=== PATIENT | female | born 1975 | race Two or more races ===

== ENCOUNTER 2018-05-21 16:44 | Emergency (ER) | payer MEDICAID ==
[~2018-05-21] VITALS: Ht 162.6 cm; Wt 84.4 kg
[2018-05-21 17:12] VITALS: BP 139/87
[2018-05-21] MEDS ORDERED: Acetaminophen 500mg (ES) tab ORAL ONE (17:30)
[2018-05-21 18:01] LABS: EOSINOPHILS % (AUTO) 1.8 % (0.0-3.0); HEMATOCRIT 41.9 % (37.0-47.0); HEMOGLOBIN 13.6 G/DL (12.0-16.0); LYMPHOCYTES % (AUTO) 30.7 % (20.0-45.0); MEAN CORPUSCULAR VOLUME 86 FL (80-99); NEUTROPHILS % (AUTO) 54.6 % (45.0-75.0); PLATELET COUNT 300 K/UL (150-450); RED BLOOD COUNT 4.89 M/UL (4.20-5.40); RED CELL DISTRIBUTION WIDTH 13.3 % (11.6-14.8); WHITE BLOOD COUNT 4.4 K/UL (4.8-10.8)
[2018-05-21 18:13] LABS: ANION GAP 8 mmol/L (5-15); BLOOD UREA NITROGEN 16 mg/dL (7-18); CALCIUM 9.1 MG/DL (8.5-10.1); CARBON DIOXIDE 25 MMOL/L (21-32); CHLORIDE 102 MMOL/L (98-107); CREATININE 0.7 MG/DL (0.55-1.30); POTASSIUM 4.4 MMOL/L (3.5-5.1); SODIUM 134 MMOL/L (136-145)
[2018-05-21 18:31] LABS: ALANINE AMINOTRANSFERASE 42 U/L (12-78); ALBUMIN/GLOBULIN RATIO 0.8 (1.0-2.7); ALKALINE PHOSPHATASE 103 U/L (46-116); ASPARTATE AMINO TRANSFERASE 26 U/L (15-37); BILIRUBIN,TOTAL 0.6 MG/DL (0.2-1.0); CKMB 0.6 NG/ML (0.0-3.6); CREATINE KINASE 76 U/L (26-308)
--- NOTE | 2018-05-21 18:47 | Emergency Room Report ---
History of Present Illness General Chief Complaint: Syncope Source: Patient Present Illness HPI 42-year-old female presents ED for evaluation. Patient states she had a syncopal episode today. States she felt dizzy and passed out. Hit her head. Complaining of headache and dizziness. Throbbing, 8 out of 10, nonradiating. Denies chest pain or shortness of breath. Denies any neck stiffness. Denies any fevers or chills. Denies any blurry vision. History of hypertension and diabetes. States she is compliant with her medications. No other aggravating relieving factors. Denies any other associated symptoms Allergies: Coded Allergies: HYDROCODONE (Verified Allergy, Unknown, 05/21/18) Patient History Past Medical History: DM, HTN Past Surgical History: none Pertinent Family History: none Social History: Denies: smoking, alcohol use, drug use Last Menstrual Period: 05/16/18 Now: No : 3 Para: 3 Immunizations: UTD Reviewed Nursing Documentation: PMH: Agreed; PSxH: Agreed Nursing Documentation-PMH Past Medical History: No History, Except For Hx Hypertension: Yes Hx Diabetes: Yes Review of Systems All Other Systems: negative except mentioned in HPI Physical Exam Vital Signs Date Time Temp Pulse Resp B/P (MAP) Pulse Ox O2 Delivery O2 Flow Rate FiO2 05/21/18 16:49 98.4 93 20 164/77 96 Room Air 98.4 Sp02 EP Interpretation: reviewed, normal General Appearance: no apparent distress, alert, GCS 15, non-toxic Head: normocephalic, other - TTP posterior scalp Eyes: bilateral eye normal inspection, bilateral eye PERRL ENT: hearing grossly normal, normal pharynx, no angioedema, normal voice Neck: full range of motion, supple, no meningismus, supple/symm/no masses, tender midline Respiratory: chest non-tender, lungs clear, normal breath sounds, speaking full sentences Cardiovascular #1: regular rate, rhythm, no edema Cardiovascular #2: 2+ carotid (R), 2+ carotid (L), 2+ radial (R), 2+ radial (L) , 2+ dorsalis pedis (R), 2+ dorsalis pedis (L) Gastrointestinal: normal bowel sounds, non tender, soft, non-distended, no guarding, no rebound Rectal: deferred Genitourinary: normal inspection, no CVA tenderness Musculoskeletal: back normal, gait/station normal, normal range of motion, non- tender Neurologic: alert, oriented x3, responsive, motor strength/tone normal, sensory intact, speech normal Psychiatric: judgement/insight normal, memory normal, mood/affect normal, no suicidal/homicidal ideation Reflexes: 3+ bicep (R), 3+ bicep (L), 3+ tricep (R), 3+ tricep (L), 3+ knee (R) , 3+ knee (L) Skin: normal color, no rash, warm/dry, well hydrated Lymphatic: no adenopathy Medical Decision Making Diagnostic Impression: Primary Impression: Syncope Qualified Codes: R55 - Syncope and collapse Additional Impression: Hyperglycemia ER Course Hospital Course 42-year-old female presents ED s/p syncopal episode. c/o headache s/p fall Differential diagnoses include: arrythmia, dehydration, intracranial bleed, seizure Clinical course Patient placed on stretcher. on air sampling and monitoring. After initial history and physical I ordered labs, EKG, chest Xray, IVFs, CT Brain labs reviewed- no leukocytosis, Hb/Hct stable, glucose > 300, no DKA, UA negative, troponins negative CT Brain - unremarkable CT C spine - no acute process Chest x-ray- no acute process EKG - NSR, no acute ischemic changes interpreted by me Discussed findings with patient. Patient safely discharged. Patient states that she's been having these symptoms ever since she was started on insulin a few days ago. Glucose in the 300s so unlikely dose is too strong. I recommend patient follow up with her PMD for medication adjustment Patient given copies of labs, CT I. I feel this is a highly complex case requiring extensive working including EKG/Rhythm strip, Xray/CT/US, Blood/urine lab work, repeat exams while in ED, and administration of strong opiates/narcotics for pain control, admission to hospital or close patient follow up. Diagnosis - syncope, hypergylcemia Stable and discharged to home. Followup with PMD. Return to ED if symptoms recur or worsen Labs Test 05/21/18 17:20 05/21/18 18:35 White Blood Count 4.4 K/UL (4.8-10.8) Red Blood Count 4.89 M/UL (4.20-5.40) Hemoglobin 13.6 G/DL (12.0-16.0) Hematocrit 41.9 % (37.0-47.0) Mean Corpuscular Volume 86 FL (80-99) Mean Corpuscular Hemoglobin 27.8 PG (27.0-31.0) Mean Corpuscular Hemoglobin Concent 32.4 G/DL (32.0-36.0) Red Cell Distribution Width 13.3 % (11.6-14.8) Platelet Count 300 K/UL (150-450) Mean Platelet Volume 7.3 FL (6.5-10.1) Neutrophils (%) (Auto) 54.6 % (45.0-75.0) Lymphocytes (%) (Auto) 30.7 % (20.0-45.0) Monocytes (%) (Auto) 12.0 % (1.0-10.0) Eosinophils (%) (Auto) 1.8 % (0.0-3.0) Basophils (%) (Auto) 1.0 % (0.0-2.0) Sodium Level 134 MMOL/L (136-145) Potassium Level 4.4 MMOL/L (3.5-5.1) Chloride Level 102 MMOL/L (98-107) Carbon Dioxide Level 25 MMOL/L (21-32) Anion Gap 8 mmol/L (5-15) Blood Urea Nitrogen 16 mg/dL (7-18) Creatinine 0.7 MG/DL (0.55-1.30) Estimat Glomerular Filtration Rate > 60 mL/min (>60) Glucose Level 303 MG/DL (74-106) Calcium Level 9.1 MG/DL (8.5-10.1) Total Bilirubin 0.6 MG/DL (0.2-1.0) Aspartate Amino Transf (AST/SGOT) 26 U/L (15-37) Alanine Aminotransferase (ALT/SGPT) 42 U/L (12-78) Alkaline Phosphatase 103 U/L (46-116) Total Creatine Kinase 76 U/L (26-308) Creatine Kinase MB 0.6 NG/ML (0.0-3.6) Creatine Kinase MB Relative Index 0.7 Troponin I 0.000 ng/mL (0.000-0.056) Total Protein 6.9 G/DL (6.4-8.2) Albumin 3.0 G/DL (3.4-5.0) Globulin 3.9 g/dL Albumin/Globulin Ratio 0.8 (1.0-2.7) Urine Color Pale yellow Urine Appearance Clear Urine pH 6 (4.5-8.0) Urine Specific [place] 1.010 (1.005-1.035) Urine Protein Negative (NEGATIVE) Urine Glucose (UA) 4+ (NEGATIVE) Urine Ketones Negative (NEGATIVE) Urine Blood Negative (NEGATIVE) Urine Nitrite Negative (NEGATIVE) Urine Bilirubin Negative (NEGATIVE) Urine Urobilinogen Normal MG/DL (0.0-1.0) Urine Leukocyte Esterase Negative (NEGATIVE) Urine HCG, Qualitative Negative (NEGATIVE) EKG Diagnostic Results Rate: normal Rhythm: NSR ST Segments: no acute changes ASA given to the pt in ED: No Rhythm Strip Diag. Results EP Interpretation: yes Rhythm: NSR, no PVC's, no ectopy Chest X-Ray Diagnostic Results Chest X-Ray Diagnostic Results : Chest X-Ray Ordered: Yes # of Views/Limited/Complete: 1 View Indication: Other - syncope EP Interpretation: Yes Interpretation: no consolidation, no effusion, no pneumothorax, no acute cardiopulmonary disease Impression: No acute disease Electronically Signed by: Electronically signed by Hany Perez MD CT/MRI/US Diagnostic Results CT/MRI/US Diagnostic Results #1: Imaging Test Ordered: CT Head Impression no acute process CT/MRI/US Diagnostic Results #2: Imaging Test Ordered: CT C spine Impression no acute process Last Vital Signs Date Time Temp Pulse Resp B/P (MAP) Pulse Ox O2 Delivery O2 Flow Rate FiO2 05/21/18 17:55 98.4 05/21/18 17:12 88 19 139/87 99 Room Air Status: improved Disposition: HOME, SELF-CARE Condition: Stable Referrals: NOT CHOSEN [facility]/,REFERRING (PCP) Hany Perez MD May 21, 2018 18:47
[2018-05-21 18:48] LABS: APPEARANCE,URINE CLEAR; BILIRUBIN, URINE NEGATIVE (NEGATIVE); COLOR,URINE PALE YELLOW; GLUCOSE, URINE (UA) 4+ (NEGATIVE); KETONES,URINE NEGATIVE (NEGATIVE); LEUKOCYTE ESTERASE ,URINE NEGATIVE (NEGATIVE); NITRITE,URINE NEGATIVE (NEGATIVE); PH,URINE 6 (4.5-8.0); PROTEIN,URINE NEGATIVE (NEGATIVE); UROBILINOGEN,URINE NORMAL MG/DL (0.0-1.0)
[2018-05-21 19:09] VITALS: BP 130/80
[2018-05-21 19:23] VITALS: BP 130/80
--- NOTE | 2018-05-22 09:16 | Diagnostic Imaging Report ---
Indication: Neck pain, trauma, syncope Technique: Spiral acquisitions obtained through the cervical spine. No IV contrast utilized. Multiplanar reconstructions were generated. Total dose length product 1748.44 mGycm. CTDIvol(s) 70.38,19.18 mGy. Dose reduction achieved using automated exposure control. Comparison: none Findings: There is slight straightening of the normal cervical lordosis, otherwise normal bony alignment. No acute fractures. No dislocations. Vertebral body heights are preserved. The disc spaces are preserved. The facet joint spaces are preserved. At C3-4, there is mild neural foraminal stenosis on the right. No significant disc bulge or protrusion, or spinal stenosis. At C5-6, there is minimal degenerative neural foraminal stenosis on the left. No significant disc bulge or protrusion or spinal stenosis. At the remaining disc levels, no significant disc bulge or protrusion, spinal stenosis, or neural foraminal narrowing. The included upper aerodigestive tract and cervical soft tissues appear unremarkable. Impression: Essentially unremarkable exam Minimal degenerative change as described This agrees with the preliminary interpretation provided overnight by [facility]. The CT scanner at [facility] is accredited by the [employer] and the scans are performed using protocols designed to limit radiation exposure to as low as reasonably achievable to attain images of sufficient resolution adequate for diagnostic evaluation.
--- NOTE | 2018-05-22 09:17 | Diagnostic Imaging Report ---
Indication: Reason For Exam: SYNCOPE Technique: Continuous helical CT scanning of the head was performed without intravenous contrast material. Axial and coronal 5 mm sections were generated. Radiation dose was minimized using automated exposure control Dose: Total Dose Length Product - DLP 1748.[address] Dose Index - CTDIvol(s) 70.38,19.18 mGy. Comparison: none Findings: The ventricular system is normal in size and configuration. There is no shift of midline structures. No abnormal extra-axial fluid collections are noted. There is no evidence of intracerebral bleeding. No other abnormal high or low density areas are noted within the brain. Normal rothman-white differentiation. No evidence of significant soft tissue contusion. Visualized orbits and sinuses are unremarkable. The mastoids are clear Impression: Normal CT scan of the head without contrast material. This agrees with the preliminary interpretation provided overnight by [facility]. The CT scanner at [facility] is accredited by the [employer] and the scans are performed using protocols designed to limit radiation exposure to as low as reasonably achievable to attain images of sufficient resolution adequate for diagnostic evaluation.
--- NOTE | 2018-05-22 09:45 | Diagnostic Imaging Report ---
Indication: Shortness of breath Technique: One view of the chest Comparison: none Findings: Lungs and pleural spaces are clear. Heart size is normal Impression: No acute process
== END 2018-05-21 19:19 | disposition home or self-care (01) ==
LOC: EMR 17:14
DX: R55 Syncope and collapse (principal); E11.65 Type 2 diabetes mellitus with hyperglycemia; I10 Essential (primary) hypertension; Z79.4 Long term (current) use of insulin
CPT/HCPCS: 36415; 70450; 71045; 72125; 80053; 81003; 81025; 82550; 82553; 84484; 85025; 93005; 96360; 99284

== ENCOUNTER 2020-06-11 16:19 | Emergency (ER) | payer MEDICAID ==
[~2020-06-11] VITALS: Ht 162.6 cm; Wt 72.6 kg
[2020-06-11 16:28] VITALS: BP 135/82
--- NOTE | 2020-06-11 16:34 | NUR ---
ED Nurse Note: [id number]
--- NOTE | 2020-06-11 16:38 | NUR ---
ED Nurse Note: Patient from home and walked in due to right earcahe with no disharge or bleeding. Denies dizziness. AAO x4 and ambulatory.
--- NOTE | 2020-06-11 17:14 | Emergency Room Report ---
History of Present Illness General Chief Complaint: Earache Source: Patient, Medical Record Present Illness HPI 44-year-old female with history of hypertension and diabetes presents to the emergency department complaining of 10 out of 10 severity progressive onset of right ear pain since yesterday. Patient reports pain that radiates towards the jaw and in front of the ear. She denies discharge, suspicion of foreign body or Q-tip use. Patient denies ear trauma. Patient denies rash. Patient denies fevers or chills. She reports muffled hearing. She denies neck pain/stiffness, headache, dizziness or tinnitus. Allergies: Coded Allergies: HYDROCODONE (Verified Allergy, Unknown, 05/21/18) COVID-19 Screening Contact w/high risk pt: No Experienced COVID-19 symptoms?: No COVID-19 Testing performed MANAGER DAIRY: No Patient History Past Medical History: see triage record Past Surgical History: none Pertinent Family History: none Now: No Reviewed Nursing Documentation: PMH: Agreed; PSxH: Agreed Nursing Documentation-PMH Past Medical History: No History, Except For Hx Hypertension: Yes Hx Diabetes: Yes Review of Systems All Other Systems: negative except mentioned in HPI Physical Exam Vital Signs Date Time Temp Pulse Resp B/P (MAP) Pulse Ox O2 Delivery O2 Flow Rate FiO2 06/11/20 16:28 98.2 78 18 135/82 96 Room Air Sp02 EP Interpretation: reviewed, normal General Appearance: no apparent distress, alert, GCS 15, non-toxic Head: normocephalic, atraumatic Eyes: bilateral eye normal inspection, bilateral eye PERRL ENT: hearing grossly normal, normal voice, uvula midline, other - Right TM is Erythematous and bulging with opaque effusion noted. The canal is WNL. Some TTP to the preauricular area. The left TM and Canal are WNL Neck: full range of motion, no meningismus, no bony tend Respiratory: chest non-tender, lungs clear, normal breath sounds, speaking full sentences Cardiovascular #1: regular rate, rhythm Musculoskeletal: normal range of motion, gait/station normal, non-tender Neurologic: alert, motor strength/tone normal, oriented x3, sensory intact, responsive, speech normal Psychiatric: judgement/insight normal Skin: no rash, normal color Lymphatic: no adenopathy Medical Decision Making PA Attestation Dr. Arora is my supervising Physician whom patient management has been discussed with. Diagnostic Impression: Primary Impression: Otitis media Qualified Codes: H66.002 - Acute suppurative otitis media without spontaneous rupture of ear drum, left ear ER Course 44-year-old female with history of hypertension and diabetes presents to the emergency department complaining of 10 out of 10 severity progressive onset of right ear pain since yesterday. Patient reports pain that radiates towards the jaw and in front of the ear. She denies discharge, suspicion of foreign body or Q-tip use. Patient denies ear trauma. Patient denies rash. Patient denies fevers or chills. She reports muffled hearing. She denies neck pain/stiffness, headache, dizziness or tinnitus. Ddx considered but are not limited to OM, OE, mastoiditis, TM perforation, FB Vital signs: are WNL, pt. is afebrile H&PE are most consistent with otitis media ORDERS: none required at this time, the diagnosis is clinical -OTOSCOPY: Right TM is Erythematous and bulging with opaque effusion noted. The canal is WNL. Some TTP to the preauricular area. ED INTERVENTIONS: None required at this time. DISCHARGE: At this time pt. is stable for d/c to home. With PO ABX. Will provide printed patient care instructions, and any necessary prescriptions. Care plan and follow up instructions have been discussed with the patient prior to discharge. Last Vital Signs Date Time Temp Pulse Resp B/P (MAP) Pulse Ox O2 Delivery O2 Flow Rate FiO2 06/11/20 16:28 98.2 78 18 135/82 (99) 96 Room Air Disposition: HOME, SELF-CARE Condition: Stable Scripts Acetaminophen* (TYLENOL EXTRA STRENGTH*) 500 Mg Tablet 500 MG ORAL Q6H PRN for Mild Pain/Temp > 100.5, #20 TAB 0 Refills Prov: Reema Reed 06/11/20 Amoxicillin/Potassium Clav 875-125* (AUGMENTIN 875-125 TABLET*) 1 Each Tablet 1 TAB ORAL TWICE A DAY for 10 Days, #20 TAB Prov: Reema Reed 06/11/20 Patient Instructions: Otitis Media, Adult, [id number] Additional Instructions: Take medications as directed. Follow up with a Primary Care Provider in 3-5 days, even if your symptoms have resolved. Return sooner to ED if new symptoms occur, or current symptoms become worse. - Please note that this Emergency Department Report was dictated using [employer] technology software, occasionally this can lead to erroneous entry secondary to interpretation by the dictation equipment. Reema Reed Jun 11, 2020 17:14
[2020-06-11] MEDS ORDERED: AUGMENTIN 875-1 EAC1 ORAL (17:15)
[2020-06-11] MEDS ORDERED: TYLENOL EXTRA500 MG ORAL (17:15)
[2020-06-11 17:24] VITALS: BP 129/76
--- NOTE | 2020-06-11 17:24 | NUR ---
ER DISCHARGE NOTE: Patient is cleared to be discharged per PA, pt is aox4, on room air, with stable vital signs. pt was given dc and prescription instructions, pt was able to verbalize understanding, pt id band removed. pt is able to ambulate with steady gait. pt took all belongings.
== END 2020-06-11 17:24 | disposition home or self-care (01) ==
LOC: EMR 16:45
DX: H66.001 Acute suppurative otitis media without spontaneous rupture of ear drum, right ear (principal); E11.9 Type 2 diabetes mellitus without complications; I10 Essential (primary) hypertension
CPT/HCPCS: 99282

== ENCOUNTER 2020-11-09 07:15 | Inpatient (IN) | payer MEDICAID ==
[~2020-11-09] VITALS: Ht 154.9 cm; Wt 91.2 kg
[~2020-11-09 07:15] MED LIST: AUGMENTIN 875-1 EAC1 ORAL; IBU800 MG PO; ROBAXIN-500MG ORAL; TYLENOL EXTRA500 MG ORAL
[2020-11-09] MEDS ORDERED: METFORMIN HCL500 M1 ORAL (07:30)
[2020-11-09] MEDS ORDERED: TRAMADOL HCL50 MG ORAL (07:30)
[2020-11-09] MEDS ORDERED: htn med (07:32)
[2020-11-09] MEDS ORDERED: Ketorolac 30mg Inj IV ONE (07:45)
--- NOTE | 2020-11-09 07:45 | Emergency Room Report ---
History of Present Illness General Chief Complaint: Abdominal Pain Source: Patient Present Illness HPI Patient is a 45-year-old female past medical history of diabetes and hypertension who presents to the ER complaining of abdominal pain and back pain. Patient states that she has had worsening abdominal pain and lower back pain for the past 2 days. She states that she also had a slight headache yesterday went to a local clinic and was given tramadol. She states that her headache has now resolved. She complains of mild nausea but denies any vomiting. She denies any chest pain or shortness of breath. She states that she did have dysuria earlier in the week but it has since resolved. She denies any hematuria. She denies any chest pain or shortness of breath. Denies any alcohol abuse. 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 COVID-19 Screening: PUI COVID-19 COVID-19 Testing Source: clinic Patient History Last Menstrual Period: 2-11 Now: No Reviewed Nursing Documentation: PMH: Agreed; PSxH: Agreed Nursing Documentation-PMH Past Medical History: No History, Except For Hx Hypertension: Yes Hx Diabetes: Yes Review of Systems All Other Systems: negative except mentioned in HPI Physical Exam Vital Signs Date Time Temp Pulse Resp B/P (MAP) Pulse Ox O2 Delivery O2 Flow Rate FiO2 11/09/20 07:22 98.2 84 22 153/73 (99) 96 Room Air Sp02 EP Interpretation: reviewed, normal General Appearance: alert, GCS 15, non-toxic, mild distress Head: normocephalic, atraumatic Eyes: bilateral eye normal inspection, bilateral eye PERRL ENT: hearing grossly normal, normal pharynx, no angioedema, normal voice Neck: full range of motion, supple/symm/no masses Respiratory: chest non-tender, lungs clear, normal breath sounds, speaking full sentences Cardiovascular #1: regular rate, rhythm, no edema Gastrointestinal: no guarding, no rebound, other - Diffuse abdominal pain, overweight Rectal: deferred Genitourinary: CVA tenderness (R), CVA tenderness (L) Musculoskeletal: normal range of motion Neurologic: speech therapy assistant III-XII nml as tested, oriented x3 Psychiatric: no suicidal/homicidal ideation Skin: no rash Lymphatic: no adenopathy Medical Decision Making Diagnostic Impression: Primary Impression: Pancreatitis Additional Impressions: UTI (urinary tract infection) Hyperglycemia Leukocytosis Fatty liver ER Course Given IV fluids, IV Toradol and Zofran. On reevaluation at 8:45 AM she states that she feels improved. I went over the patient's results with her including UTI with microscopic hematuria as well as elevated lipase. Patient will need admission. I have started her on antibiotics for her UTI. We will continue to monitor pending CT abdomen pelvis. Patient CT demonstrates no acute intraabdominal or pelvic pathology. Patient will be admitted for further treatment and evaluation. Laboratory Tests Test 11/09/20 07:42 11/09/20 07:51 POC Whole Blood Glucose 255 MG/DL (74-106) H White Blood Count 13.7 K/UL (4.8-10.8) H Red Blood Count 5.41 M/UL (4.20-5.40) H Hemoglobin 14.9 G/DL (12.0-16.0) Hematocrit 46.1 % (37.0-47.0) Mean Corpuscular Volume 85 FL (80-99) Mean Corpuscular Hemoglobin 27.5 PG (27.0-31.0) Mean Corpuscular Hemoglobin Concent 32.3 G/DL (32.0-36.0) Red Cell Distribution Width 15.1 % (11.6-14.8) H Platelet Count 373 K/UL (150-450) Mean Platelet Volume 8.3 FL (6.5-10.1) Neutrophils (%) (Auto) 70.3 % (45.0-75.0) Lymphocytes (%) (Auto) 21.6 % (20.0-45.0) Monocytes (%) (Auto) 6.3 % (1.0-10.0) Eosinophils (%) (Auto) 0.7 % (0.0-3.0) Basophils (%) (Auto) 1.1 % (0.0-2.0) Urine Color Pale yellow Urine Appearance Cloudy Urine pH 5 (4.5-8.0) Urine Specific [place] 1.020 (1.005-1.035) Urine Protein 3+ (NEGATIVE) H Urine Glucose (UA) 3+ (NEGATIVE) H Urine Ketones Negative (NEGATIVE) Urine Blood 5+ (NEGATIVE) H Urine Nitrite Negative (NEGATIVE) Urine Bilirubin Negative (NEGATIVE) Urine Urobilinogen Normal MG/DL (0.0-1.0) Urine Leukocyte Esterase 2+ (NEGATIVE) H Urine RBC Tntc /HPF (0 - 2) H Urine WBC 15-20 /HPF (0 - 2) H Urine Squamous Epithelial Cells Moderate /LPF (NONE/OCC) H Urine Amorphous Sediment Moderate /LPF (NONE) H Urine Bacteria Moderate /HPF (NONE) H Urine HCG, Qualitative Negative (NEGATIVE) Sodium Level 135 MMOL/L (136-145) L Potassium Level 4.1 MMOL/L (3.5-5.1) Chloride Level 102 MMOL/L (98-107) Carbon Dioxide Level 25 MMOL/L (21-32) Anion Gap 8 mmol/L (5-15) Blood Urea Nitrogen 16 mg/dL (7-18) Creatinine 0.8 MG/DL (0.55-1.30) Estimated Glomerular Filtration Rate > 60 mL/min (>60) Glucose Level 236 MG/DL (74-106) H Calcium Level 8.4 MG/DL (8.5-10.1) L Magnesium Level 1.8 MG/DL (1.8-2.4) Total Bilirubin 0.3 MG/DL (0.2-1.0) Aspartate Amino Transferase (AST) 17 U/L (15-37) Alanine Aminotransferase (ALT) 36 U/L (12-78) Alkaline Phosphatase 92 U/L (46-116) Total Protein 6.7 G/DL (6.4-8.2) Albumin 3.2 G/DL (3.4-5.0) L Globulin 3.5 g/dL Albumin/Globulin Ratio 0.9 (1.0-2.7) L Lipase 953 U/L (73-393) H Urine Opiates Screen Negative (NEGATIVE) Urine Barbiturates Screen Negative (NEGATIVE) Phencyclidine (PCP) Screen Negative (NEGATIVE) Urine Amphetamines Screen Negative (NEGATIVE) Urine Benzodiazepines Screen Negative (NEGATIVE) Urine Cocaine Screen Negative (NEGATIVE) Urine Marijuana (THC) Screen Negative (NEGATIVE) Acetone Level Negative (NEGATIVE) Microbiology Date/Time Source Procedure Growth Status 11/09/20 08:26 Nasopharynx SARS-CoV-2 Antigen (Rapid)(JENNY) - Final Complete EKG Diagnostic Results Troponin ordered: No - Ordered for abdominal pain EKG Time: 07:39 EP Interpretation: Roselyn Dukes MD Rate: normal - 77 bpm Rhythm: NSR ST Segments: no acute changes ASA given to the pt in ED: No Rhythm Strip Diag. Results Rhythm Strip Time: 10:39 EP Interpretation: yes - Roselyn Dukes MD Rate: 71 bpm Rhythm: NSR, no PVC's, no ectopy Last Vital Signs Date Time Temp Pulse Resp B/P (MAP) Pulse Ox O2 Delivery O2 Flow Rate FiO2 11/09/20 07:22 98.2 84 22 153/73 (99) 96 Room Air Disposition: ADMITTED INPATIENT - medical surgical floor Condition: Critical Physician Consult: Dr. Kenyon at 1040am Referrals: NOT CHOSEN IPA/,REFERRING (PCP) Additional Instructions: Please note that this report is being documented using [employer] technology. This can lead to erroneous entry secondary to incorrect interpretation by the dictating instrument. Roselyn Dukes M.D. Nov 09, 2020 07:44
--- NOTE | 2020-11-09 07:47 | NUR ---
ED Nurse Note: pt states she is having abd pain that radiates to back. states seen yest for headache at clinic and having pending covid test. no active n/v
[2020-11-09 07:59] VITALS: BP 153/73
[2020-11-09 08:12] LABS: APPEARANCE,URINE CLOUDY; BILIRUBIN, URINE NEGATIVE (NEGATIVE); COLOR,URINE PALE YELLOW; GLUCOSE, URINE (UA) 3+ (NEGATIVE); KETONES,URINE NEGATIVE (NEGATIVE); LEUKOCYTE ESTERASE ,URINE 2+ (NEGATIVE); NITRITE,URINE NEGATIVE (NEGATIVE); PH,URINE 5 (4.5-8.0); PROTEIN,URINE 3+ (NEGATIVE); UROBILINOGEN,URINE NORMAL MG/DL (0.0-1.0)
[2020-11-09 08:16] LABS: BASOPHILS % (AUTO) 1.1 % (0.0-2.0); EOSINOPHILS % (AUTO) 0.7 % (0.0-3.0); HEMATOCRIT 46.1 % (37.0-47.0); HEMOGLOBIN 14.9 G/DL (12.0-16.0); LYMPHOCYTES % (AUTO) 21.6 % (20.0-45.0); MEAN CORPUSCULAR VOLUME 85 FL (80-99); MONOCYTES % (AUTO) 6.3 % (1.0-10.0); NEUTROPHILS % (AUTO) 70.3 % (45.0-75.0); PLATELET COUNT 373 K/UL (150-450); RED BLOOD COUNT 5.41 M/UL (4.20-5.40); RED CELL DISTRIBUTION WIDTH 15.1 % (11.6-14.8); WHITE BLOOD COUNT 13.7 K/UL (4.8-10.8)
[2020-11-09 08:28] LABS: ANION GAP 8 mmol/L (5-15); BLOOD UREA NITROGEN 16 mg/dL (7-18); CALCIUM 8.4 MG/DL (8.5-10.1); CARBON DIOXIDE 25 MMOL/L (21-32); CHLORIDE 102 MMOL/L (98-107); CREATININE 0.8 MG/DL (0.55-1.30); POTASSIUM 4.1 MMOL/L (3.5-5.1); SODIUM 135 MMOL/L (136-145)
[2020-11-09] MEDS ORDERED: cefTRIAXone 2 GM in NS 55 ML IVPB ONE (08:30)
[2020-11-09 08:32] LABS: ALANINE AMINOTRANSFERASE 36 U/L (12-78); ALBUMIN 3.2 G/DL (3.4-5.0); ALBUMIN/GLOBULIN RATIO 0.9 (1.0-2.7); ALKALINE PHOSPHATASE 92 U/L (46-116); ASPARTATE AMINO TRANSFERASE 17 U/L (15-37); BILIRUBIN,TOTAL 0.3 MG/DL (0.2-1.0)
--- NOTE | 2020-11-09 10:28 | Diagnostic Imaging Report ---
EXAM: CT CT Abdomen Pelvis wo/w Cont. INDICATION: Abdominal pain. COMPARISON: None TECHNIQUE: Axial images were obtained through the abdomen pelvis without intravenous contrast. Sagittal and coronal reformats are generated. All CT scans at this facility are performed using dose modulation techniques as appropriate to a performed exam including the following: automated exposure control with adjustment of the mA and/or kV according to patient size. RADIATION DOSE: CTDIvol: 209 mGy DLP: 2754.8 mGy-cm Dose information generated by the CT scanner is available in PACS. FINDINGS: The lung bases are clear. There is mild diffuse fatty change of the liver with some sparing near the gallbladder fossa. The spleen is homogeneous. Gallbladder is without sludge or stone and there is no wall thickening. The pancreas is unremarkable. Adrenals are normal in morphology. The kidneys are normal in size, shape and axis. Small bowel loops are nondistended. Moderate stool lucencies noted in the colon. The appendix is normal. There is no free fluid or free air. No pathologic adenopathy demonstrated. Urinary bladder appears unremarkable. There is a tiny fatty umbilical hernia. IMPRESSION: NO SIGN OF ACUTE DISEASE IN THE ABDOMEN AND PELVIS. MILD DIFFUSE FATTY LIVER. TINY FATTY UMBILICAL HERNIA.
[2020-11-09 11:15] VITALS: BP 156/82
--- NOTE | 2020-11-09 11:20 | NUR ---
ED Nurse Note: Report given to Mackenzie espitia awaiting pt.
--- NOTE | 2020-11-09 11:24 | NUR ---
NURSE NOTES: Received pt from ER, pt transferred via W/C by nurse. Pt alert and oriented, ambulatory, Indonesian speaking. No respiratory distress noted. Pt c/o abd pain 5/10 stating pain got better after admitted(Project Builder present). Vital stable. Belongings checked with pt. Skin intact. IV on R AC intact and patent. Will call MD for admission order. Oriented pt to room. Siderail up x2. Bed in low position, locked. Call light within reach.
[2020-11-09] MEDS ORDERED: Morphine Sulfate 4mg/ml Inj (IV USE ONLY) IVP PRN (13:30)
[2020-11-09] MEDS: NovoLOG Insulin Flexpen SUBQ SCH ×2 (17:25→21:39)
--- NOTE | 2020-11-09 19:14 | History and Physical Report ---
DATE OF ADMISSION: 11/09/2020 REASON FOR ADMISSION: Pancreatitis. HISTORY OF PRESENT ILLNESS: This is a 45-year-old female who presents with diabetes and hypertension. Patient with abdominal pain and back pain with mild nausea. No other significant symptoms noted. The patient is seen and evaluated, noted to have pancreatitis, now admitted. PAST MEDICAL HISTORY: Notable for diabetes and hypertension. MEDICATIONS: Reviewed. ALLERGIES: Reviewed. PHYSICAL EXAMINATION: GENERAL: A well-developed female, comfortable at present. VITAL SIGNS: Reviewed. Blood pressure elevated 156/82, pulse 86, respirations 18, saturations 100%. HEENT: Negative. NECK: Supple. LUNGS: Clear. CARDIAC: Normal S1, S2. Regular rate and rhythm. ABDOMEN: Tender in the epigastrium and the suprapubic region. LABORATORY DATA: Reviewed. Lipase 953. Blood sugar is 236. White cell count 13. Toxicology screen is negative. IMPRESSION: 1. Pancreatitis. 2. Possible urinary tract infection by urinalysis. 3. Fatty liver. 4. Fatty umbilical hernia. RECOMMENDATION: NPO. Sliding scale insulin. Clonidine p.r.n. Empiric antibiotics for possible urinary tract infection. GI is see. Followup laboratories and recommend further pending reassessment in the a.m. Pain control as needed. Niko Mckeon M.D. DR: TOI JOB#: [id number] CC:
--- NOTE | 2020-11-09 19:20 | NUR ---
NURSE NOTES: Pt alert and oriented, ambulatory, Prydeinig speaking. No respiratory distress noted. Pt c/o abd pain 5/10 stating pain got better after admitted(Manager Primary present). Vital stable. Belongings checked with pt. Skin intact. IV on R AC intact and patent. Will call MD for admission order. Oriented pt to room. Siderail up x2. Bed in low position, locked. Call light within reach.
--- NOTE | 2020-11-09 19:52 | NUR ---
NURSE HAND-OFF: Important Events on Shift:[new admission, pain in control, NPO] Patient Status: [] Diet: [NPO] Pending Orders: [] Pending Results/Labs:[] Pending MD notification:[] Latest Vital Signs: Temperature 97.0 , Pulse 86 , B/P 156 /82 , Respiratory Rate 18 , O2 SAT 100 , Room Air, O2 Flow Rate . Vital Sign Comment: [stable] Latest Mattson Fall Score: 35 Fall Risk: Medium Risk Safety Measures: Call light Within Reach, Bed Alarm Zone 1, Side Rails Side Rails x2, Bed position Low and Locked. Fall Precautions: Report given to [HUSEYIN Fitzgerald].
[2020-11-09 20:00] VITALS: BP 144/80
[2020-11-10] VITALS: BP 144/84
[2020-11-10 04:00] VITALS: BP 143/89
[2020-11-10] MEDS: Morphine Sulfate 2mg/ml Inj(IV/IM USE ONLY) IVP PRN ×2 (04:48→20:38)
--- NOTE | 2020-11-10 06:07 | NUR ---
NURSE NOTES: pt states she is having abd pain that radiates to back and headache 7/10 MORPHINE given
[2020-11-10 06:22] LABS: BASOPHILS % (AUTO) 0.9 % (0.0-2.0); EOSINOPHILS % (AUTO) 1.2 % (0.0-3.0); HEMOGLOBIN 13.3 G/DL (12.0-16.0); LYMPHOCYTES % (AUTO) 29.2 % (20.0-45.0); MEAN CORPUSCULAR VOLUME 87 FL (80-99); MONOCYTES % (AUTO) 7.6 % (1.0-10.0); NEUTROPHILS % (AUTO) 61.1 % (45.0-75.0); PLATELET COUNT 295 K/UL (150-450); RED BLOOD COUNT 4.93 M/UL (4.20-5.40); RED CELL DISTRIBUTION WIDTH 15.2 % (11.6-14.8); WHITE BLOOD COUNT 7.6 K/UL (4.8-10.8)
[2020-11-10] MEDS: NovoLOG Insulin Flexpen SUBQ SCH ×4 (06:30→20:35)
[2020-11-10 06:55] LABS: ALANINE AMINOTRANSFERASE 36 U/L (12-78); ALBUMIN 2.9 G/DL (3.4-5.0); ALBUMIN/GLOBULIN RATIO 0.8 (1.0-2.7); ALKALINE PHOSPHATASE 73 U/L (46-116); ANION GAP 7 mmol/L (5-15); ASPARTATE AMINO TRANSFERASE 23 U/L (15-37); BILIRUBIN,TOTAL 0.4 MG/DL (0.2-1.0); BLOOD UREA NITROGEN 10 mg/dL (7-18); CALCIUM 8.6 MG/DL (8.5-10.1); CARBON DIOXIDE 26 MMOL/L (21-32); CHLORIDE 108 MMOL/L (98-107); CREATININE 0.7 MG/DL (0.55-1.30); POTASSIUM 4.2 MMOL/L (3.5-5.1); SODIUM 141 MMOL/L (136-145)
--- NOTE | 2020-11-10 07:49 | General Progress Note ---
Subjective Allergies: Coded Allergies: HYDROCODONE (Verified Adverse Reaction, Unknown, headache, nausea, anxiety, 11/09/20) Subjective care noted and reviewed Objective Last 24 Hour Vital Signs Date Time Temp Pulse Resp B/P (MAP) Pulse Ox O2 Delivery O2 Flow Rate FiO2 11/10/20 04:00 98.3 73 18 143/89 (107) 66 11/10/20 00:00 98.7 66 18 144/84 (104) 66 11/09/20 21:00 Room Air 11/09/20 20:00 98.1 79 18 144/80 (101) 79 11/09/20 11:49 Room Air 11/09/20 11:15 97.0 86 18 156/82 100 11/09/20 07:59 98.2 22 153/73 96 Room Air Intake and Output 11/09/20 11/10/20 19:00 07:00 Intake Total 0 ml Balance 0 ml Intake Oral 0 ml Laboratory Tests 11/09/20 07:51: White Blood Count 13.7H, Red Blood Count 5.41H, Hemoglobin 14.9, Hematocrit 46.1, Mean Corpuscular Volume 85, Mean Corpuscular Hemoglobin 27.5, Mean Corpuscular Hemoglobin Concent 32.3, Red Cell Distribution Width 15.1H, Platelet Count 373, Mean Platelet Volume 8.3, Neutrophils (%) (Auto) 70.3, Lymphocytes (%) (Auto) 21.6, Monocytes (%) (Auto) 6.3, Eosinophils (%) (Auto) 0.7, Basophils (%) (Auto) 1.1, Urine Color Pale yellow, Urine Appearance Cloudy, Urine pH 5, Urine Specific [place] 1.020, Urine Protein 3+H, Urine Glucose (UA) 3+H, Urine Ketones Negative, Urine Blood 5+H, Urine Nitrite Negative, Urine Bilirubin Negative, Urine Urobilinogen Normal, Urine Leukocyte Esterase 2+H, Urine RBC TntcH, Urine WBC 15-20H, Urine Squamous Epithelial Cells ModerateH, Urine Amorphous Sediment ModerateH, Urine Bacteria ModerateH, Urine HCG, Qualitative Negative, Sodium Level 135L, Potassium Level 4.1, Chloride Level 102, Carbon Dioxide Level 25, Anion Gap 8, Blood Urea Nitrogen 16, Creatinine 0.8, Estimat Glomerular Filtration Rate > 60, Glucose Level 236H, Calcium Level 8.4L, Magnesium Level 1.8, Total Bilirubin 0.3, Aspartate Amino Transf (AST/SGOT) 17, Alanine Aminotransferase (ALT/SGPT) 36, Alkaline Phosphatase 92, Total Protein 6.7, Albumin 3.2L, Globulin 3.5, Albumin/Globulin Ratio 0.9L, Lipase 953H, Urine Opiates Screen Negative, Urine Barbiturates Screen Negative, Phencyclidine (PCP) Screen Negative, Urine Amphetamines Screen Negative, Urine Benzodiazepines Screen Negative, Urine Cocaine Screen Negative, Urine Marijuana (THC) Screen Negative, Acetone Level Negative 11/09/20 17:10: POC Whole Blood Glucose 164H 11/09/20 21:37: POC Whole Blood Glucose 150H 11/10/20 05:50: White Blood Count 7.6, Red Blood Count 4.93, Hemoglobin 13.3, Hematocrit 43.0, Mean Corpuscular Volume 87, Mean Corpuscular Hemoglobin 27.0, Mean Corpuscular Hemoglobin Concent 30.9L, Red Cell Distribution Width 15.2H, Platelet Count 295, Mean Platelet Volume 7.4, Neutrophils (%) (Auto) 61.1, Lymphocytes (%) (Auto) 29.2, Monocytes (%) (Auto) 7.6, Eosinophils (%) (Auto) 1.2, Basophils (%) (Auto) 0.9, Sodium Level 141, Potassium Level 4.2, Chloride Level 108H, Carbon Dioxide Level 26, Anion Gap 7, Blood Urea Nitrogen 10, Creatinine 0.7, Estimat Glomerular Filtration Rate > 60, Glucose Level 135#H, Calcium Level 8.6, Total Bilirubin 0.4, Aspartate Amino Transf (AST/SGOT) 23, Alanine Aminotransferase (ALT/SGPT) 36, Alkaline Phosphatase 73, Total Protein 6.5, Albumin 2.9L, Globulin 3.6, Albumin/Globulin Ratio 0.8L 11/10/20 06:58: POC Whole Blood Glucose 130H Height (Feet): 5 Height (Inches): 1.00 Weight (Pounds): 201 Objective WDWN NAD clear breath sounds bilaterally without rhonchi or wheeze [id number] without MRG NABS nontender no HSM no CCE nonfocal Assessment/Plan Assessment/Plan: 1. Pancreatitis. 2. Possible urinary tract infection by urinalysis. 3. Fatty liver. 4. Fatty umbilical hernia. PLAN await lipase clears if able gi to see iv hydration pain control impression, plan, and exam edited and reviewed in detail care discussed with Niko Mansfield MD Nov 10, 2020 07:49
[2020-11-10 08:00] VITALS: BP 156/79
--- NOTE | 2020-11-10 10:50 | NUR ---
NURSE NOTES: pt is alert and awake. respiration is even and unlabored on room air. pt remains NPO per MD's order. IV line inplace, tubing patent, fluid running, tolerated well. pt c/o of abdominal pain, rates her pain to be 2/10, placed call light within reach.
[2020-11-10 16:00] VITALS: BP 151/86
[2020-11-10] MEDS ORDERED: LANTUS SOL100 UNIT/1 SUBQ (17:14)
[2020-11-10] MEDS ORDERED: JANUVIA25 MG ORAL (17:14)
[2020-11-10] MEDS ORDERED: ASPIRIN81 MG ORAL (17:14)
[2020-11-10] MEDS ORDERED: OMEGA 3 500 SO1 EACH PO (17:14)
[2020-11-10] MEDS ORDERED: NOVOLOG100 UNITS1 SUBQ (17:14)
[2020-11-10] MEDS ORDERED: BENAZEPRIL HCL40 MG ORAL (17:14)
--- NOTE | 2020-11-10 19:30 | NUR ---
NURSE NOTES: Patient awake in bed, alert and oriented x4, on room air,. IV access on right AC running NS @ 100cc/hr. Call light and needs in reach. Bed in lowest and lock engaged. Will continue to monitor.
[2020-11-10 20:00] VITALS: BP 126/80
--- NOTE | 2020-11-10 20:59 | General Progress Note ---
Subjective Allergies: Coded Allergies: HYDROCODONE (Verified Adverse Reaction, Unknown, headache, nausea, anxiety, 11/09/20) Objective Last 24 Hour Vital Signs Date Time Temp Pulse Resp B/P (MAP) Pulse Ox O2 Delivery O2 Flow Rate FiO2 11/10/20 16:00 97.0 67 18 151/86 (107) 97 11/10/20 09:00 Room Air 11/10/20 08:00 97.8 63 17 156/79 (104) 96 11/10/20 04:00 98.3 73 18 143/89 (107) 66 11/10/20 00:00 98.7 66 18 144/84 (104) 66 11/09/20 21:00 Room Air Intake and Output 11/09/20 11/10/20 19:00 07:00 Intake Total 0 ml Balance 0 ml Intake Oral 0 ml Laboratory Tests 11/09/20 21:37: POC Whole Blood Glucose 150H 11/10/20 05:50: White Blood Count 7.6, Red Blood Count 4.93, Hemoglobin 13.3, Hematocrit 43.0, Mean Corpuscular Volume 87, Mean Corpuscular Hemoglobin 27.0, Mean Corpuscular Hemoglobin Concent 30.9L, Red Cell Distribution Width 15.2H, Platelet Count 295, Mean Platelet Volume 7.4, Neutrophils (%) (Auto) 61.1, Lymphocytes (%) (Auto) 29.2, Monocytes (%) (Auto) 7.6, Eosinophils (%) (Auto) 1.2, Basophils (%) (Auto) 0.9, Sodium Level 141, Potassium Level 4.2, Chloride Level 108H, Carbon Dioxide Level 26, Anion Gap 7, Blood Urea Nitrogen 10, Creatinine 0.7, Estimat Glomerular Filtration Rate > 60, Glucose Level 135#H, Calcium Level 8.6, Total Bilirubin 0.4, Aspartate Amino Transf (AST/SGOT) 23, Alanine Aminotransferase (ALT/SGPT) 36, Alkaline Phosphatase 73, Total Protein 6.5, Albumin 2.9L, Globulin 3.6, Albumin/Globulin Ratio 0.8L, Lipase 243 11/10/20 06:58: POC Whole Blood Glucose 130H 11/10/20 12:08: POC Whole Blood Glucose 130H 11/10/20 16:11: POC Whole Blood Glucose 194H Height (Feet): 5 Height (Inches): 1.00 Weight (Pounds): 201 Assessment/Plan Assessment/Plan: Assessment - Mild, resolving pancreatitis - ? passed a stone - UTI - Fatty liver Recommendations - clears / advance - MRCP - d/c planing once MRCP results reviewed Thank you MD German Wasserman Payman MD Nov 10, 2020 20:59
[2020-11-10] MEDS ORDERED: Gadavist 7.5mMol/7.5ml vial IV SCH (21:00)
--- NOTE | 2020-11-10 22:00 | NUR ---
NURSE NOTES: Consent for contrast signed by patient.
--- NOTE | 2020-11-10 22:59 | Consultation ---
DATE OF CONSULTATION: 11/10/2020 GASTROENTEROLOGY CONSULTATION CONSULTING PHYSICIAN: Sylvester Porter MD CHIEF COMPLAINT: I was asked to see this patient by Dr. Niko Mckeon for evaluation of abdominal pain and pancreatitis. HISTORY OF PRESENT ILLNESS: The patient is a 45-year-old Nigerien-speaking woman who came to the hospital due to abdominal pain and back pain. The patient noted that the pain started first with nausea and dry heaves, but no vomiting. Patient does not have alcohol history and also denies having had stones in the gallbladder in the past. Patient has not had this pain before and has not had a history of pancreatitis in the past. She does state that she has high cholesterol, but cannot recall any triglyceride issues. On admission, her lipase was 953, which is better today. She feels better today. PAST MEDICAL HISTORY: History of hypercholesterolemia, diabetes, hypertension. MEDICATIONS: Lantus as well as Humalog insulin, metformin, Januvia, benazepril, aspirin, omega-3 fatty acids, and also a statin for her cholesterol. FAMILY HISTORY: Negative for cancer. SOCIAL HISTORY: The patient is . She has 3 children. She does not smoke or drink alcohol. REVIEW OF SYSTEMS: Otherwise negative. PHYSICAL EXAMINATION: GENERAL: Well-developed, well-nourished woman, seen in her room. HEENT: Normocephalic and atraumatic. Sclerae anicteric. Oropharynx clear. NECK: Supple. CHEST: Clear to auscultation. CARDIOVASCULAR: Revealed a regular rate. ABDOMEN: Soft, obese with good bowel sounds. There was minimal epigastric abdominal tenderness to palpation without guarding or rebound or masses. EXTREMITIES: Revealed no edema. LABORATORY DATA: Noted. ASSESSMENT: This patient presents with epigastric abdominal discomfort with elevated lipase, which is consistent with acute pancreatitis. Given her presentation, the possibility of gallstones is higher even though not seen in the imaging studies. The patient can undergo MRCP tomorrow to rule out any remaining stones of the biliary tree. Should the MRCP be negative and her symptoms continued to improve, then discharge planning can be made. Her lipid panel can also be checked for the morning, although it may be artificially low given her condition and NPO status with clear liquid diet. RECOMMENDATIONS: 1. Clear liquid diet today and advance as tolerated. 2. MRCP tomorrow. 3. Check lipid panel. Thank you for asking me to participate in the care of this patient. Sylvester Porter M.D. DR: STEPHEN JOB#: [id number] CC: JAYESH
[2020-11-10 23:57] VITALS: BP 159/82
[2020-11-11 04:00] VITALS: BP 143/83
[2020-11-11] MEDS: NovoLOG Insulin Flexpen SUBQ SCH ×4 (05:18→21:10)
--- NOTE | 2020-11-11 07:03 | NUR ---
NURSE HAND-OFF: Important Events on Shift: consent signed for contrast, npo Patient Status: Diet: Pending Orders: Pending Results/Labs: Pending MD notification: Latest Vital Signs: Temperature 99.0 , Pulse 86 , B/P 143 /83 , Respiratory Rate 18 , O2 SAT 97 , Room Air, O2 Flow Rate . Vital Sign Comment: Latest Mattson Fall Score: 35 Fall Risk: Medium Risk Safety Measures: Call light Within Reach, Bed Alarm Zone 1, Side Rails Side Rails x3, Bed position Low and Locked. Fall Precautions: Report given to HUSEYIN Graves.
[2020-11-11 07:07] LABS: CHOLESTEROL 122 MG/DL (< 200); HDL CHOLESTEROL 37 MG/DL (40-60); TRIGLYCERIDES 109 MG/DL (30-150)
[2020-11-11 08:00] VITALS: BP 144/86
--- NOTE | 2020-11-11 08:28 | General Progress Note ---
Subjective Allergies: Coded Allergies: HYDROCODONE (Verified Adverse Reaction, Unknown, headache, nausea, anxiety, 11/09/20) Subjective care noted and reviewed Objective Last 24 Hour Vital Signs Date Time Temp Pulse Resp B/P (MAP) Pulse Ox O2 Delivery O2 Flow Rate FiO2 11/11/20 04:00 99.0 86 18 143/83 (103) 11/10/20 23:57 99.0 68 18 159/82 (107) 97 11/10/20 21:00 Room Air 11/10/20 20:00 98.5 65 18 126/80 (95) 97 11/10/20 16:00 97.0 67 18 151/86 (107) 97 11/10/20 09:00 Room Air Intake and Output 11/10/20 11/11/20 19:00 07:00 Intake Total 950 ml 1000 ml Balance 950 ml 1000 ml Intake Oral 850 ml IV Total 100 ml 1000 ml # Voids 3 Laboratory Tests 11/10/20 12:08: POC Whole Blood Glucose 130H 11/10/20 16:11: POC Whole Blood Glucose 194H 11/10/20 20:32: POC Whole Blood Glucose [Pending] 11/11/20 05:15: POC Whole Blood Glucose [Pending] 11/11/20 05:40: Triglycerides Level 109, Cholesterol Level 122, LDL Cholesterol 70, HDL Cholesterol 37L, Cholesterol/HDL Ratio 3.3 Height (Feet): 5 Height (Inches): 1.00 Weight (Pounds): 201 Objective WDWN NAD clear breath sounds bilaterally without rhonchi or wheeze [id number] without MRG NABS nontender no HSM no CCE nonfocal Assessment/Plan Assessment/Plan: 1. Pancreatitis. 2. UTI 3. Fatty liver. 4. Fatty umbilical hernia. 5. hypertension PLAN normal lipase GI clearance pending MRCP iv hydration pain control PO antibiotics impression, plan, and exam edited and reviewed in detail care discussed with Niko Mansfield MD Nov 11, 2020 08:28
--- NOTE | 2020-11-11 11:41 | NUR ---
NURSE NOTES: Patient awake and alert,respirations unlabored.iv fluids infusing as ordered.patient schedule for test today,will follow up.Call light within reach.
[2020-11-11 12:47] VITALS: BP 156/87
--- NOTE | 2020-11-11 16:51 | NUR ---
NURSE NOTES: DR Porter aware that MRI not done due to No traffic signal technician available Spoke with radiology Department and not sure when traffic signal technician will be availabe to do MRI .DR Porter notified . DR Porter Order to put Patient on a Low Fat diet.
[2020-11-11 17:17] VITALS: BP 152/95
[2020-11-11] MEDS: Morphine Sulfate 2mg/ml Inj(IV/IM USE ONLY) IVP PRN (17:37)
--- NOTE | 2020-11-11 18:00 | NUR ---
NURSE NOTES: Patient resting, abdominal pain has decreased .patient started on solids,no complaint of Nausea or vomiting. IV fluids continue to infuse as ordered.call light within reach.
--- NOTE | 2020-11-11 19:30 | NUR ---
NURSE NOTES: Patient awake in bed, on room air, no complaint at this time. Call light and needs in reach. Bed in lowest and lock engaged. Will continue to monitor.
--- NOTE | 2020-11-11 19:40 | NUR ---
NURSE HAND-OFF: Dorina FONTANEZ Important Events on Shift:[pain meication] Patient Status: []uneventful Diet: low fat[] Pending Orders: [] Pending Results/Labs:[] Pending MD notification:[] Latest Vital Signs: Temperature 98.5 , Pulse 72 , B/P 139 /69 , Respiratory Rate 18 , O2 SAT 95 , Room Air, O2 Flow Rate . Vital Sign Comment: [] Latest Mattson Fall Score: 35 Fall Risk: Medium Risk Safety Measures: Call light Within Reach, Bed Alarm Zone 1, Side Rails Side Rails x3, Bed position Low and Locked. Fall Precautions: Report given to [].
[2020-11-11 20:00] VITALS: BP 139/69
--- NOTE | 2020-11-11 23:06 | General Progress Note ---
Subjective Allergies: Coded Allergies: HYDROCODONE (Verified Adverse Reaction, Unknown, headache, nausea, anxiety, 11/09/20) Subjective Above noted seen early am pain better later notified by RN that MRI cannot be done since no tech available Objective Last 24 Hour Vital Signs Date Time Temp Pulse Resp B/P (MAP) Pulse Ox O2 Delivery O2 Flow Rate FiO2 11/11/20 21:00 Room Air 11/11/20 20:00 98.5 72 18 139/69 (92) 95 11/11/20 20:00 98.5 72 18 139/69 (92) 95 11/11/20 17:17 97.9 69 18 152/95 (114) 97 11/11/20 12:47 98.3 63 18 156/87 (110) 97 11/11/20 09:00 Room Air 11/11/20 08:00 98.5 63 18 144/86 (105) 99 11/11/20 08:00 98.5 63 18 144/86 (105) 99 11/11/20 04:00 99.0 86 18 143/83 (103) 11/10/20 23:57 99.0 68 18 159/82 (107) 97 Intake and Output 11/10/20 11/11/20 19:00 07:00 Intake Total 950 ml 1000 ml Balance 950 ml 1000 ml Intake Oral 850 ml IV Total 100 ml 1000 ml # Voids 3 Laboratory Tests 11/11/20 05:15: POC Whole Blood Glucose [Pending] 11/11/20 05:40: Triglycerides Level 109, Cholesterol Level 122, LDL Cholesterol 70, HDL Cholesterol 37L, Cholesterol/HDL Ratio 3.3 11/11/20 12:38: POC Whole Blood Glucose [Pending] 11/11/20 17:10: POC Whole Blood Glucose [Pending] 11/11/20 20:39: POC Whole Blood Glucose 365H 11/11/20 20:41: POC Whole Blood Glucose 310H Height (Feet): 5 Height (Inches): 1.00 Weight (Pounds): 201 Objective WDWN NCAT supple CTA RR abd soft, minimally TTP epig no edema Assessment/Plan Assessment/Plan: Assessment - Mild, resolving pancreatitis - ? passed a stone - UTI - Fatty liver Recommendations - low fat diet - MRCP --> needs to do as outpatient - d/c planning if tolerates solids Sylvester Porter MD 12, 2021 23:06
[2020-11-12] VITALS: BP 135/72
[2020-11-12] MEDS: NovoLOG Insulin Flexpen SUBQ SCH ×2 (06:12→12:03)
--- NOTE | 2020-11-12 07:11 | NUR ---
NURSE HAND-OFF: Important Events on Shift: Patient Status: Diet: Pending Orders: Pending Results/Labs: Pending MD notification: Latest Vital Signs: Temperature 98.3 , Pulse 76 , B/P 135 /72 , Respiratory Rate 16 , O2 SAT 95 , Room Air, O2 Flow Rate . Vital Sign Comment: Latest Mattson Fall Score: 35 Fall Risk: Medium Risk Safety Measures: Call light Within Reach, Bed Alarm Zone 1, Side Rails Side Rails x3, Bed position Low and Locked. Fall Precautions: Report given to HUSEYIN Madrigal.
--- NOTE | 2020-11-12 07:32 | NUR ---
NURSE NOTES: Patient alert x4; on room air, no sign of distress and shortness of breath; no sign of chest pain; IV RAC NS 100cc running; side rails up x2, breaks engaged, bed at lowest position; call light within reach; will keep monitoring.
--- NOTE | 2020-11-12 09:18 | General Progress Note ---
Subjective Allergies: Coded Allergies: HYDROCODONE (Verified Adverse Reaction, Unknown, headache, nausea, anxiety, 11/09/20) Subjective care noted and reviewed Objective Last 24 Hour Vital Signs Date Time Temp Pulse Resp B/P (MAP) Pulse Ox O2 Delivery O2 Flow Rate FiO2 11/12/20 00:00 98.3 76 16 135/72 (93) 95 11/11/20 21:00 Room Air 11/11/20 20:00 98.5 72 18 139/69 (92) 95 11/11/20 20:00 98.5 72 18 139/69 (92) 95 11/11/20 17:17 97.9 69 18 152/95 (114) 97 11/11/20 12:47 98.3 63 18 156/87 (110) 97 Intake and Output 11/11/20 11/12/20 19:00 07:00 Intake Total 1410 ml 900 ml Balance 1410 ml 900 ml Intake Oral 360 ml IV Total 1050 ml 900 ml # Voids 3 3 Laboratory Tests 11/11/20 12:38: POC Whole Blood Glucose [Pending] 11/11/20 17:10: POC Whole Blood Glucose [Pending] 11/11/20 20:39: POC Whole Blood Glucose 365H 11/11/20 20:41: POC Whole Blood Glucose 310H 11/12/20 06:10: POC Whole Blood Glucose 208H Height (Feet): 5 Height (Inches): 1.00 Weight (Pounds): 201 Objective WDWN NAD clear breath sounds bilaterally without rhonchi or wheeze [id number] without MRG NABS nontender no HSM no CCE nonfocal Assessment/Plan Assessment/Plan: 1. Pancreatitis. 2. UTI 3. Fatty liver. 4. Fatty umbilical hernia. 5. hypertension PLAN normal lipase GI clearance noted with outpatient MRCP iv hydration dc pain control PO antibiotics written dc home impression, plan, and exam edited and reviewed in detail care discussed with Niko Mansfield MD Nov 12, 2020 09:17
--- NOTE | 2020-11-12 11:54 | NUR ---
CASE MANAGEMENT:REVIEW 11/12/20 SI: PANCREATITIS. UTI 98.3 76 16 135/72 95% ON RA GLUCOSE+208 IS: IVF@100/HR PROTONIX PO QD SS INSULIN AC+HS : MED/SURG STATUS DCP: FROM HOME PLAN: MRI ABDOMEN
[2020-11-12 12:00] VITALS: BP 145/82
--- NOTE | 2020-11-12 14:35 | NUR ---
NURSE NOTES: Patient discharge to home; IV access and name tag removed; patient signed belongings and discharge paper works; original prescription given to patient, copy in file; patient stable; patient instructed to communicate her primary care provider for to do MRCP as an out patient; patient stable upon discharge.
--- NOTE | 2020-11-12 17:35 | General Progress Note ---
Subjective Allergies: Coded Allergies: HYDROCODONE (Verified Adverse Reaction, Unknown, headache, nausea, anxiety, 11/09/20) Subjective Above noted pain resolved tolerating PO advised pt to see PMD as outpatient and arrange for outpatient MRCP Objective Last 24 Hour Vital Signs Date Time Temp Pulse Resp B/P (MAP) Pulse Ox O2 Delivery O2 Flow Rate FiO2 11/12/20 12:00 97.3 60 20 145/82 (103) 98 11/12/20 09:00 Room Air 11/12/20 00:00 98.3 76 16 135/72 (93) 95 11/11/20 21:00 Room Air 11/11/20 20:00 98.5 72 18 139/69 (92) 95 11/11/20 20:00 98.5 72 18 139/69 (92) 95 Intake and Output 11/11/20 11/12/20 19:00 07:00 Intake Total 1410 ml 900 ml Balance 1410 ml 900 ml Intake Oral 360 ml IV Total 1050 ml 900 ml # Voids 3 3 Laboratory Tests 11/11/20 20:39: POC Whole Blood Glucose 365H 11/11/20 20:41: POC Whole Blood Glucose 310H 11/12/20 06:10: POC Whole Blood Glucose 208H Height (Feet): 5 Height (Inches): 1.00 Weight (Pounds): 201 Objective WDWN NCAT supple CTA RR abd soft, NT no edema Assessment/Plan Assessment/Plan: Assessment - Mild, resolving pancreatitis - ? passed a stone - UTI - Fatty liver Recommendations - low fat diet - MRCP --> needs to do as outpatient - d/c planning Sylvester Porter MD Nov 12, 2020 17:35
--- NOTE | 2020-11-15 10:56 | Discharge Summary ---
Discharge Summary Discharge Summary _ Date of admission: 11/09/2020 Date of discharge: 11/12/[address] Mckeon History of Present Illness and Brief Hospital Course Ms. Dwight Meier is a 45-year-old female with past medical history of diabetes and hypertension, who presented to ER for evaluation of abdominal pain and back pain x2 days. Patient was given IV fluids, IV Toradol and Zofran. Patient's urinalysis was consistent with UTI with microscopic hematuria. Patient also had elevated lipase. Patient was started on antibiotics for UTI. Abdomen/pelvis CT showed no acute intra-abdominal or pelvic pathology. Patient was admitted to the hospital for further treatment and evaluation. The lipase was initially elevated which began trending down. Patient began tolerating oral intake. Abdomen was soft and nontender. Patient was instructed to get MRCP as an outpatient. Patient was treated for UTI. The antibiotic was switched to oral upon discha rge. Patient was medically stable for discharge and was discharged home on 11/12/2020. Consultants: Gastroenterology Dr. Porter Discharge Condition Improved and stable Discharge Activity As tolerated Discharge Diet Low-fat diet Final diagnoses Pancreatitis UTI Fatty liver Hypertension Fatty umbilical hernia I have been assigned to dictate discharge summary for this account. I was not involved in the patient's management Aravind Ledesma Nov 15, 2020 10:56
== END 2020-11-12 14:35 | disposition home or self-care (01) | DRG 282 ==
LOC: EMR 07:28 → EDBEDREQ 08:44 → 4E 08:50 → EDBEDREQ 10:34
DX: K85.90 Acute pancreatitis without necrosis or infection, unspecified (principal); N39.0 Urinary tract infection, site not specified; K42.9 Umbilical hernia without obstruction or gangrene; K76.0 Fatty (change of) liver, not elsewhere classified; I10 Essential (primary) hypertension; Z88.6 Allergy status to analgesic agent
CPT/HCPCS: 36415; 74178; 80053; 80061; 80307; 81003; 81025; 82009; 82962; 83690; 83735; 85025; 87086; 87181; 93005; 96361; 96365; 96375; 99285; A9585; J1815; J2405; J7030